=== PATIENT | female | born 1985 | race Caucasian/White ===

== ENCOUNTER → 2017-12-05 18:21 | Outpatient (CLI) | payer OTHER, SELFPAY ==
--- NOTE | 2017-12-05 | DI.MRI.S_ITS ---
PROCEDURE: MR ANKLE RT WO CON INDICATIONS: PAIN IN RIGHT FOOT TECHNIQUE: Noncontrast sagittal T1 spin echo and T2 fast spin echo with fat saturation, axial proton density fast spin echo and T2 fast spin echo with fat saturation, coronal T1 spin echo and T2 fast spin echo with fat saturation through the ankle/hindfoot. COMPARISON: None. FINDINGS: Image quality: Excellent. Bones and joints: No bone marrow contusions or fractures. No hindfoot coalitions. No osteochondral injuries of the talar dome. Tibiotalar joint effusion is present. There is an unfused accessory navicular with mild marrow edema at the synchondrosis. Medial structures: The posterior tibialis, flexor digitorum longus, and flexor hallucis longus tendons are intact. However there is fluid surrounding the posterior tibialis and flexor digitorum longus tendons. The posterior tibial neurovascular bundle appears normal within the tarsal tunnel, without extrinsic mass effect. The deep layer (anterior and posterior tibiotalar ligaments) and superficial layer (tibionavicular, tibiospring, and tibiocalcaneal ligaments) of the deltoid ligament appear grossly intact however there is intrasubstance T2 hyperintensity in signal change, and probable surrounding mild soft tissue edema. The spring ligament components (superomedial calcaneonavicular, medioplantar oblique calcaneonavicular, and inferoplantar longitudinal ligaments) are intact. Lateral structures: The anterior talofibular, calcaneofibular, and posterior talofibular ligaments appear intact. More superiorly, the anterior and posterior tibiofibular ligaments appear intact, as is the intermalleolar ligament. The tibiofibular syndesmosis is normal in width at 2 mm or less. The peroneus longus and brevis tendons demonstrate normal location and morphology. Adjacent bony peroneal tubercle and retrotrochlear prominence are normal in size. The sinus tarsi demonstrates normal fatty signal, without edema, fibrosis, or cyst formation. Visualized sinus tarsi components (cervical ligament, interosseous talocalcaneal ligament, roots of the inferior extensor retinaculum) appear normal. The calcaneonavicular and calcaneocuboid components of the bifurcate ligament appear intact. The dorsal calcaneocuboid ligament appears intact. Anterior structures: The tibialis anterior, extensor hallucis longus, and extensor digitorum longus tendons appear intact. The dorsal talonavicular ligament appears intact. Posterior and plantar structures: Achilles tendon is intact. Medial and lateral bands of the plantar fascia are of normal thickness. 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 Recommend clinical correlation. Posterior tibialis and flexor digitorum longus tenosynovitis. Diffuse signal change and ill-defined appearance of the deltoid ligament suggestive of sprain. Mild marrow edema in the adjacent medial malleolus which could be reactive. Please correlate to clinical exam findings. Dictated by: Orestes Staples M.D. on 12/08/2017 at 9:09 Approved by: Orestes Staples M.D. on 12/08/2017 at 9:22
== END ==
PROVIDERS: Visit Provider Podiatrist
DX: M79.671 Pain in right foot (principal); M65.871 Other synovitis and tenosynovitis, right ankle and foot; Q74.2 Other congenital malformations of lower limb(s), including pelvic girdle
CPT/HCPCS: 73721

== ENCOUNTER → 2019-04-16 14:31 | Outpatient (CLI) | payer OTHER, SELFPAY ==
--- NOTE | 2019-04-16 14:33 | DI.CT.S_ITS ---
PROCEDURE: CT ABDOMEN PELVIS WO CON INDICATIONS: rule out ventral/spigelian hernia left abdomen TECHNIQUE: Noncontrast 5 mm thick sections acquired from the diaphragms to the symphysis. 5 mm coronal and sagittal reformats were then performed. For radiation dose reduction, the following was used: automated exposure control, adjustment of mA and/or kV according to patient size. COMPARISON: [facility], , US ABDOMEN, 05/14/2018, 15:28. FINDINGS: Image quality: Excellent. ABDOMEN: Lung bases: Lung bases are clear. Heart size is normal. Solid organs: Liver is normal in size. Gallbladder is unremarkable. Pancreas is normal in contours. Spleen is normal in size. No adrenal nodules. Kidneys are normal in size, without hydronephrosis or nephrolithiasis. Peritoneum and bowel: Unenhanced bowel loops demonstrate normal wall thickness and caliber. No free fluid or air. The appendix is not clearly identified on this exam, but there are no right lower quadrant or pericecal inflammatory findings to suggest acute appendicitis. There is mild diverticulosis without diverticulitis of the sigmoid and descending colon. Nodes and vessels: No retroperitoneal or mesenteric adenopathy by size criteria. Aorta and inferior vena cava are normal in caliber. Miscellaneous: There is a small 1.7 x 1.5 x 1.2 cm fat-containing umbilical hernia. No other ventral abdominal wall hernias are identified. There are small areas of hypoattenuating fat infiltration of the bilateral rectus abdominous musculature, without gavi defect or hernia. PELVIS: Genitourinary: Bladder wall thickness is normal. Miscellaneous: No inguinal hernias or adenopathy. The uterus is present. There is a 1.5 cm anterior uterine wall possible hypoattenuating mass near the fundus.Trace volume free fluid within the pelvis, likely within physiologic limits. Bones: No suspicious bony lesions. No vertebral body compression fractures. IMPRESSION: 1. Small 1.5 cm fat-containing umbilical hernia. No other hernias of the ventral abdominal wall are identified. Small areas of fat infiltration of the bilateral rectus muscles noted. 2. Possible 1.5 cm hypoattenuating mass within the anterior uterine wall, most consistent with an uterine leiomyoma/fibroid. Consider pelvic ultrasound if there is continued clinical concern. 3. Mild sigmoid and descending colon diverticulosis without evidence of acute diverticulitis. Dictated by: Lasha Hicks M.D. on 04/16/2019 at 16:31 Approved by: Lasha Hicks M.D. on 04/19/2019 at 17:17
== END ==
PROVIDERS: Visit Provider Surgery
DX: R10.12 Left upper quadrant pain (principal); K42.9 Umbilical hernia without obstruction or gangrene; K57.30 Diverticulosis of large intestine without perforation or abscess without bleeding
CPT/HCPCS: 74176

== ENCOUNTER 2020-06-28 12:28 | Emergency (ER) | payer OTHER, SELFPAY ==
[2020-06-28 12:35] VITALS: BP 121/69; PULSE 67; RESP 15; TEMP 36.8; O2SAT 100; BMI 22.6
[2020-06-28] MEDS: FLUORESCEIN 1 MG STRIP EYE-RIGHT (13:34)
[2020-06-28] MEDS: PROPARACAINE 0.5% OPHTH SOL 1 DROPS EYE-RIGHT (13:34)
[2020-06-28] MEDS: TET,DIPH,PERTUSS(ACELL),VAC/PF 0.5 ML SYRINGE IM (13:34)
[2020-06-28 14:47] VITALS: BP 100/57; PULSE 56; RESP 16; O2SAT 100
--- NOTE | 2020-06-28 14:57 | ED_ITS ---
HPI - Eye Problem <ANIYA Marquez - Last Filed: 06/28/20 15:03> General Chief complaint: Eye Problems Stated complaint: states something in her right eye lid Time Seen by Provider: 06/28/20 13:16 Source: patient Mode of arrival: Ambulatory Limitations: no limitations History of Present Illness HPI Narrative: The patient is a 34-year-old female nonsmoker who denies pertinent medical history presents with a chief complaint of something under her right lid for the past several days. She states she started having this sensation after being exposed to sawdust for several days in a row. She states she has felt this way before. She does not know when her last tetanus was, then states that her family member checked her vaccination card noted that her last tetanus was in 1998. She denies any eye pain, denies any visual deficits, denies any blurry vision or haloing of lights. She has flushed out her eye multiple times. Related Data Home Medications Medication Instructions Recorded Confirmed ibuprofen 200 mg tablet 600 mg PO Q6-8H PRN tab 04/15/19 04/21/19 Previous Rx's Medication Instructions Recorded erythromycin 1 applic EYE-RIGHT Q4H 7 Days #3.5 06/28/20 g Allergies Allergy/AdvReac Type Severity Reaction Status Date / Time codeine Allergy Unknown Verified 06/28/20 12:37 Review of Systems <DEANN Marquez - Last Filed: 06/28/20 15:03> Review of Systems Narrative: GENERAL: Denies chills, fatigue, malaise, fever, sweats. HEENT: See HPI RESPIRATORY: Denies dyspnea, cough, wheezing, hemoptysis, sputum. CARDIOVASCULAR: Denies chest pain, palpitations, orthopnea, edema, GASTROINTESTINAL: Denies nausea, vomiting, abdominal pain, diarrhea, constipation, melena. : Denies dysuria, frequency, incontinence, hematuria, urinary retention. MUSCULOSKELETAL: denies weakness, joint pain, or bony pain SKIN: Denies rash, skin lesions, or other NEUROLOGIC: Denies weakness, headache, numbness, change in speech, confusion, seizures, incoordination. PSYCHIATRIC: No concerning psychosocial issues. 12 point review of systems is negative except for those stated above Patient History <ANIYA Marquez - Last Filed: 12/30/20 15:03> Medical History Abdominal wall pain in left upper quadrant Asthma Scar of abdominal wall Seasonal allergies Surgical History Hx of appendectomy Hx of section Hx of tubal ligation Social History marital status: household members: children occupational status: employed Smoking Status: Never smoker alcohol intake: current substance use type: does not use Smoking Status: Never smoker alcohol intake frequency: holidays/special occasions only Substance Use Type: does not use Exam <ANIYA Marquez - Last Filed: 06/28/20 15:03> Narrative Exam Narrative: GENERAL: This is a well-nourished, well-developed patient, in no acute distress HEAD: Atraumatic. Normocephalic. No temporal or scalp tenderness. EYES: Pupils equal round and reactive. Extraocular motions intact. No scleral icterus. No injection or drainage. Very slight diffuse, not well demarcated erythema noted on top of right lid, medial aspect less than half a cm. No obvious foreign body or corneal abrasion noted on fluorescein exam. Slight inflammation noted inside of upper lid. ENT: Nose without bleeding, purulent drainage or septal hematoma. Throat without erythema, tonsillar hypertrophy or exudate. Uvula midline. Airway patent. NECK: Trachea midline. No JVD or lymphadenopathy. Supple, nontender, no meningeal signs. CARDIOVASCULAR: Regular rate and rhythm RESPIRATORY: No cough. No increased respiratory effort. No accessory muscle use. BACK: Nontender without deformity or crepitance. No flank tenderness. NEURO: AOx3. Initial Vital Signs Initial Vital Signs: Vital Signs Temperature 98.3 F 06/28/20 12:35 Pulse Rate 67 06/28/20 12:35 Respiratory Rate 15 06/28/20 12:35 Blood Pressure 121/69 06/28/20 12:35 Pulse Oximetry 100 06/28/20 12:35 <Cecilia Stone DO - Last Filed: 06/28/20 17:15> Initial Vital Signs Initial Vital Signs: Vital Signs Temperature 98.3 F 06/28/20 12:35 Pulse Rate 67 06/28/20 12:35 Respiratory Rate 15 06/28/20 12:35 Blood Pressure 121/69 06/28/20 12:35 Pulse Oximetry 100 06/28/20 12:35 Scores <DEANN Marquez - Last Filed: 06/28/20 15:03> GCS Jorge coma scale eye opening: Spontaneous [place] coma scale verbal response: Orientated [place] coma scale motor response: Obey commands Jorge coma scale total score: 15 Course <DEANN Marquez - Last Filed: 06/28/20 15:03> Orders Ordered: Discontinued Medications Diphtheria/Tetanus/Acell Pertussis (Tet,Diph,Pertuss(Acell),Vac/Pf 0.5 Ml Syringe) 0.5 ml IM .ONCE ONE Stop: 06/28/20 13:30 Last Admin: 06/28/20 13:34 Dose: 0.5 ml Documented by: GAMALIEL Fluorescein Sodium (Fluorescein 1 Mg Strip) 1 mg EYE-RIGHT NOW ONE Stop: 06/28/20 13:21 Last Admin: 06/28/20 13:34 Dose: 1 mg Documented by: GAMALIEL Proparacaine HCl (Proparacaine 0.5% Ophth Daniela) 1 drops EYE-RIGHT NOW ONE Stop: 06/28/20 13:21 Last Admin: 06/28/20 13:34 Dose: 1 drop Documented by: GAMALIEL Vital Signs Vital signs: Vital Signs - 8 hr 06/28/20 12:35 06/28/20 14:47 Temperature 98.3 F Pulse Rate 67 56 L Respiratory Rate 15 16 Blood Pressure 121/69 100/57 L Pulse Oximetry 100 100 <Cecilia Stone DO - Last Filed: 06/28/20 17:15> Orders Ordered: Discontinued Medications Diphtheria/Tetanus/Acell Pertussis (Tet,Diph,Pertuss(Acell),Vac/Pf 0.5 Ml Syringe) 0.5 ml IM .ONCE ONE Stop: 06/28/20 13:30 Last Admin: 06/28/20 13:34 Dose: 0.5 ml Documented by: GAMALIEL Fluorescein Sodium (Fluorescein 1 Mg Strip) 1 mg EYE-RIGHT NOW ONE Stop: 06/28/20 13:21 Last Admin: 06/28/20 13:34 Dose: 1 mg Documented by: FHUDSON Proparacaine HCl (Proparacaine 0.5% Ophth Daniela) 1 drops EYE-RIGHT NOW ONE Stop: 06/28/20 13:21 Last Admin: 06/28/20 13:34 Dose: 1 drop Documented by: GAMALIEL Vital Signs Vital signs: Vital Signs - 8 hr 06/28/20 12:35 06/28/20 14:47 Temperature 98.3 F Pulse Rate 67 56 L Respiratory Rate 15 16 Blood Pressure 121/69 100/57 L Pulse Oximetry 100 100 MDM - Eye Problem <BARRY Marquez-BC - Last Filed: 06/28/20 15:03> [facility] Narrative Medical decision making narrative: The patient is a 34-year-old male who presents with a chief complaint of something in her right eye under the lid. No obvious foreign body or abnormality, though slight diffuse inflammation noted. Patient's tetanus was updated accordingly. Her visual acuity is within normal limits. Encouraged follow-up with primary care provider in the next few days and coming back to the ER for acute concerns. Patient is placed on erythromycin. No questions or concerns upon discharge states understanding return precautions as well as follow-up care. Discharge Plan Departure Patient Disposition: Home Clinical Impression: Eye discomfort Qualifiers: Laterality: right Qualified Code(s): H57.11 - Ocular pain, right eye Instructions: Erythromycin Ophthalmic, DI for Foreign Body in the Eye Activity Restrictions/Additional Instructions: Thank you for trusting us with your care today. As discussed, please follow-up with primary care provider in the next few days. I did send a prescription of erythromycin to [facility] in [place] Please come back to the emergency department for any acute concerns such as eye pain, decreased vision etcetera Prescriptions: New erythromycin 5 mg/gram (0.5 %) ointment 1 applic EYE-RIGHT Q4H 7 Days Qty: 3.5 RF: 0 No Action ibuprofen [Motrin IB] 200 mg tablet 600 mg PO Q6-8H PRNRF: 0 Referrals: [facility] [Provider Group] <Cecilia Stone DO - Last Filed: 06/28/20 17:15> Cosign ED Attending Yasemin Attestation: I was immediately available in the department for consultation. Documentation has been reviewed. I agree with asse ssment and plan.
== END 2020-06-28 14:50 | disposition home or self-care (01) ==
PROVIDERS: Emergency Provider Nurse Practitioner Family
DX: H57.11 Ocular pain, right eye (principal); Z23 Encounter for immunization
CPT/HCPCS: 90471; 99281; 99283; 90715

== ENCOUNTER → 2022-05-28 14:57 | Outpatient (CLI) | payer OTHER, SELFPAY ==
--- NOTE | 2022-05-28 14:59 | DI.US.S_ITS ---
PROCEDURE: US PELVIC COMPLETE INDICATIONS: EXCESSIVE BLEEDING TECHNIQUE: Real-time scanning was performed of the pelvic organs, with image documentation. Additional endovaginal scanning was necessary due to incomplete visualization of the adnexal and endometrial structures by transabdominal scanning. COMPARISON: [facility], CT, CT ABDOMEN PELVIS WO CON, 04/16/2019, 15:20. FINDINGS: Uterus: Uterus is retroverted and normal in size at 8.2 x 5.7 x 4.7 cm. The myometrium is slightly heterogeneous but no discrete mass visible. The endometrium is heterogeneous and measures 16 mm combined thickness. Normal vascularity throughout the myometrium without increased endometrial vascular flow. There are a few small and one dominant nabothian cysts at the cervix. Ovaries: The right ovary measures 3.7 x 2.2 x 1.7 cm, with a calculated ovarian volume of 7.3 cc. The left ovary measures 5.6 x 1.7 x 2.6 cm, with a calculated ovarian volume of 12.8 cc. The right ovary contains a thick-walled, mildly peripherally vascular collapsed cyst measuring about 2.0 cm, likely corpus luteum. Less than 12 follicles can be seen in each ovary. No adnexal masses are seen. Other: Mildly increased quantity of free fluid present in both adnexa. IMPRESSION: 1. Heterogeneous endometrial stripe at the upper limits of normal for premenopausal female. No abnormal vascular flow. 2. Slightly heterogeneous retroverted uterine myometrium. No dominant mass. 3. Involuting right ovarian corpus luteum. This may be the etiology of adnexal free fluid. We strive to produce accurate, complete, and clear reports of imaging services. To assist us in improving patient care, this report was composed using standard report templates and voice recognition software. Therefore, it may contain abnormal punctuation, insertions and/or omissions. Occasional wrong-word or sound-alike substitutions may occur. Though we review the report and make efforts to correct it, we do recommend that the report be read carefully in proper context to recognize any text inaccuracies. Dictated by: Ayde Seaman M.D. on 05/29/2022 at 11:18 Approved by: Ayde Seaman M.D. on 05/29/2022 at 11:24
== END ==
PROVIDERS: PCP Family Medicine; Referring Provider Family Medicine; Visit Provider Family Medicine
DX: N92.0 Excessive and frequent menstruation with regular cycle (principal); N83.11 Corpus luteum cyst of right ovary
CPT/HCPCS: 76830; 76856

== ENCOUNTER 2022-11-18 09:40 | Day surgery (SDC) | payer OTHER, SELFPAY ==
[2022-11-13 15:16] VITALS: BMI 27.1
[2022-11-18] VITALS (12 sets, daily range): BP systolic 88–133; BP diastolic 54–80; PULSE 53–96; RESP 12–18; TEMP 36.1–36.9; O2SAT 95–100; BMI 27.1
--- NOTE | 2022-11-18 | PATH_ITS ---
[facility] Accession Number: [id number] No. of containers..01 Tissue . 01 Material submitted: . uterus - UTERUS, RIGHT / LEFT FALLOPIAN TUBES . 01 Diagnosis: Uterus And Bilateral Fallopian Tubes, Hysterectomy And Bilateral Salpingectomy: Cervix with mild chronic inflammation; no dysplasia or malignancy. Proliferative endometrium with changes suggestive of prior treatment; no atypical hyperplasia and no malignancy. Unremarkable myometrium. Complete cross-section of fimbriated bilateral fallopian tubes with hydrosalphinx, mild chronic inflammation and reactive epithelial changes (see microscopic description). No evidence of malignancy. [facility] 11/21/2022 1339 Local . 01 Comment: Selected slides have also been reviewed by Dr. Lay Good, who concurs with the benign and reactive nature of the entirely examined fallopian tubes. . 01 Electronically signed: . Yennifer Rodriguez MD, Pathologist NPI- [id number] . 01 Gross description: . The specimen is received in formalin labeled with the patient's name, , and uterus and R and L fallopian tubes, and consists of an intact uterus (125 grams, 8.9 SI, 6.6 mL, 4.5 AP cm), with attached cervix (3.7 x 3.0 cm) and two detached, unoriented, fimbriated fallopian tubes (5.8 x 0.9 cm and 4.4 x 0.7 cm respectively), and no adnexa. . The ectocervix is pink-fernandez, smooth, and glistening and significant for a purple loop of suture from 12 o'clock to 2 o'clock with no desigantion per the requisition. The os is patulous and measures 1.0 cm in diameter. The anterior paracervical margin is inked blue while the posterior paracervical margin is inked black. The serosa is fernandez and smooth with no evidence of hemorrhage or adhesion identified. The endocervical canal has fernandez herringbone mucosa and measures 2.5 cm in length. The endometrial cavity has lush dark red endometrium and measures 2.8 cm from cornu to cornu and 3.7 cm in length with the endometrium averaging 0.4 cm thick. The myometrium is pink-fernandez and trabecular measuring up to 2.2 cm in maximum thickness with no nodules or lesions grossly identified. . The longer fallopian tube has congested smooth serosa with multiple cystic structures measuring up to 0.3 cm in greatest dimension filled with cloudy serous fluid. The fallopian tube has an area of luminal narrowing possibly consistent with previous tubal ligation. Sectioning reveals a dilated, disconnected lumen. The shorter fallopian tube has congested smooth serosa with multiple cystic structures measuring up to 0.1 cm in greatest dimension filled with cloudy serous fluid. An area of luminal narrowing is noted possibly consistent with previous tubal ligation. Sectioning reveals a disconnected, dilated lumen. . Sections are submitted as follows: A1: Anterior cervix. A2: Posterior cervix. A3: Anterior full thickness section. A4: Posterior full thickness section. A5: Serosa. A6: Longer fallopian tube to include one-half of bisected fimbriae and cross-sections. A7: [place] fallopian tube to include one-half of bisected fimbriae and cross-sections. ([id number]) . The remaining longer fallopian tube is submitted entirely in cassettes [id number]. . The remaining shorter fallopian tube is submitted in cassettes [id number]. ([id number]) /PIYUSH 11/21/2022 0340 [facility] . 01 Microscopic: . Initial examination of the fallopian tube was remarkable for hyperplastic epithelial lining with pseudostratification and formation of small papillae. This was seen in association with inflammation and hydrosalpinx. The entire fallopian tubes were then submitted to exclude an atypical proliferation. The rest of the fallopian tube was also noted to show reactive changes with no evidence of malignancy. . 01 Pathologist provided ICD-10: N92.0 . 01 CPT . 679201 Specimen Comment: A courtesy copy of this report has been sent to [phone] Performed at: [address] [place] [address] Cytology 550 [address] [address] [facility], [place], [place] [id number] MD Mk Baker MD Phone: [phone]
--- NOTE | 2022-11-18 10:28 | PM.PREOP ---
Pre-operative Note COVID-19 COVID-19 status: Not tested Criteria for continued procedure: Non-surgical alternatives not available or appropriate per current SOC Interval Note History & Physical reviewed/Exam performed by Physician: Yes Changes to H&P: No
[2022-11-18] MEDS: CEFAZOLIN 2 GM/100 ML PREMIX 100 ML IV (11:00)
--- NOTE | 2022-11-18 11:18 | SUR.OPER ---
Lithotomy on padded OR bed. Jolley Pad Positioner under torso. Head on pillow, arms padded and tucked at sides. Legs secured in padded yellow fins stirrups.
[2022-11-18] MEDS: BUPIVACAINE 0.5% (PF) 30 ML, EPINEPHrine 0.15 MG INJ (11:49)
[2022-11-18] MEDS: LACTATED RINGERS 1,000 ML 42 ML IV (12:03)
[2022-11-18] MEDS: ROPIVACAINE 0.2% PF 2 MG/ML 20ML AMP 20 ML INJ (12:39)
[2022-11-18] MEDS: OXYCODONE/ACETAMINOPHEN 5/325 TABLET 1 TAB PO (13:09)
--- NOTE | 2022-11-18 13:09 | PM.GYNOP.1 ---
Operative Date/Time/Diagnoses Date of procedure: 11/18/22 Time of procedure: 11:00 Pre-op diagnosis: Menometrorrhagia Adenomyosis Post-op diagnosis: same Procedure & Clinicians Procedure: Procedures Operation Date: 11/18/22 11:15 Actual Procedure Side Surgeon p Laparoscopic Total Hysterectomy w. bilateral salpingectomy Ladarius Mason MD Indications: Maida is a 36-year-old A1, LMP 09/10/2022, who presents with a 10 year history of progressively heavy and painful periods.? She experienced menarche at age 8 and has had regular predictable periods throughout her adult life.? She is not experienced any infertility issues.? She is had 3 deliveries with the 1st being a spontaneous vaginal followed by a section, and her 3rd delivery was by .? At the time of her last delivery she had a tubal ligation performed.? Prior to that when not she was on control pills and had fairly light periods while on OCs.? Following her tubal ligation however her periods have remained regular but come to be extremely heavy with at least 3-4 days of severe bleeding associated with severe dysmenorrhea.? During those occasion she feels uncomfortable even leaving the house sometimes due to fear of overflows and has had multiple overflows especially at night.? She uses 800 mg of ibuprofen every [id number] hours to provide any significant relief to her dysmenorrhea.? She is had multiple ultrasounds through the years but no specific therapy or further evaluation for her dysmenorrhea and menorrhagia.? She denies any intermenstrual bleeding.? She is not sexually active as her 4 years ago.? Pap smears have always been normal with her most recent Pap in mid 2021.? She has not had endometrial sampling performed.? Her most recent pelvic ultrasound was performed 05/28/2022 and shows: PROCEDURE:? US PELVIC COMPLETE ? INDICATIONS:? EXCESSIVE BLEEDING ? TECHNIQUE:? Real-time scanning was performed of the pelvic organs, with image documentation.? Additional endovaginal scanning was necessary due to incomplete visualization of the adnexal and endometrial structures by transabdominal scanning.? ? COMPARISON:? [facility], CT, CT ABDOMEN PELVIS WO CON, 04/16/2019, 15:20. ? FINDINGS:? ?? Uterus:? Uterus is retroverted and normal in size at 8.2 x 5.7 x 4.7 cm. The myometrium is slightly heterogeneous but no discrete mass visible. ? The endometrium is heterogeneous and measures 16 mm combined thickness.? Normal vascularity throughout the myometrium without increased endometrial vascular flow.? There are a few small and one dominant nabothian cysts at the cervix. ? Ovaries:? The right ovary measures 3.7 x 2.2 x 1.7 cm, with a calculated ovarian volume of 7.3 cc. The left ovary measures 5.6 x 1.7 x 2.6 cm, with a calculated ovarian volume of 12.8 cc.? The right ovary contains a thick-walled, mildly peripherally vascular collapsed cyst measuring about 2.0 cm, likely corpus luteum.? Less than 12 follicles can be seen in each ovary.? No adnexal masses are seen. ? Other:? Mildly increased quantity of free fluid present in both adnexa. ?? IMPRESSION:? ? 1. Heterogeneous endometrial stripe at the upper limits of normal for premenopausal female.? No abnormal vascular flow.? 2. Slightly heterogeneous retroverted uterine myometrium.? No dominant mass. 3. Involuting right ovarian corpus luteum.? This may be the etiology of adnexal free fluid. Ultrasound images reviewed and the heterogenous nature of the myometrium and what appears to be a thickened transition zone are concerning for the possible presence of adenomyosis and her symptoms of heavy bleeding and severe dysmenorrhea her certainly consistent with that diagnosis.? Options for treatment of her menorrhagia discussed at length including but not limited to insertion of Mirena IUD, endometrial ablation, or hysterectomy with ovarian preservation discussed.? Patient does not want to have a Mirena IUD inserted because of her previous issues with hormonal contraceptives.? She is also concerned that endometrial ablation would not provide definitive treatment especially if adenomyosis is present.? Instead the patient seems to be leaning toward having hysterectomy and bilateral salpingectomy performed with ovarian preservation given how long she is been dealing with the symptoms and how many days each month she is virtually incapacitated by her menses.? Endometrial biopsy at her initial visit was negative for atypia, hyperplasia, or neoplasia. After consideration of all options, the patient has decided proceed with total laparoscopic hysterectomy and bilateral salpingectomy.? She presents today for her scheduled surgery. Surgeon: Ladarius Mason Lift Team Technician: Paris Xiao Anesthesia Type: General Operative Notes Closure Type: primary Specimen(s): left tube, right tube and uterus Applied: catheter Estimated blood loss (mL): 75 Blood products transfused: none Procedure in detail: With the patient in modified dorsal lithotomy position preparations were made by prepping and draping the patient in usual manner for vaginal surgery and insertion of Fuentes catheter. A pre-surgical time-out was then taken in accordance with [facility] policy. A bivalve speculum was then placed in the vagina and the cervix visualized. The anterior lip of the cervix was then grasped with a single-tooth tenaculum. The uterus was sounded to [] cm, the endocervical canal dilated slightly, and a VCare uterine manipulator with a large colpotomy cup was placed. The umbilicus was then infiltrated with 0.5% Marcaine with epinephrine. A 1 cm umbilical incision was made transversely and a Veress needle was used to insufflate the abdominal cavity with carbon dioxide. Once the abdomen was appropriately insufflated, a 5 mm trocar and sleeve were then placed through the umbilical incision. The scope was placed through the trocar and the initial assessment of the intra-abdominal contents carried out. A 2nd and 3rd 5 mm port was then placed 1st in the right mid quadrant from then the left mid quadrant by infiltration of the skin and subcutaneous tissues, a 1 cm transverse incision and insertion of the 5 mm bladeless port. Using a 3 puncture technique, the abdomen and pelvis were inspected laparoscopy and photographically documented. Uterus is mobilized with the VCare manipulator and attention turned to the left adnexa. The distal tube was then grasped and the fimbria varicose divided after coagulation with the PowerSeal device. The dissection was then carried out toward the cornua and the fallopian tube amputated. The tube was removed through a 5 mm port and dissection was then carried down using the PowerSeal device so as to divide the utero-ovarian ligament and the round ligament with blunt and sharp dissection of the broad down to the level of the uterine artery. The uterine artery was then skeletonized after development of a bladder flap, coagulated, and divided. Once hemostasis was assured on the left side attention was turned to the right and the tube, utero-ovarian ligament, round ligament, and broad ligament were dissected in a fashion exactly the same as it had been on the left. The right uterine artery was then visualized after skeletonization and coagulated and divided. The uterus was seen to conrad after coagulation of both your arteries and the cup was identified through the vaginal muscularis at its insertion with the body of the cervix. Circumferential excision of the vaginal cup was accomplished without difficulty using monopolar current and the uterus mobilized. The uterus was then removed through the vagina and the vaginal cuff closed [id number] with a series of 0 Vicryl [id number] stitches. Hemostasis was excellent, the abdomen was re-insufflated, and the pelvis inspected laparoscopically. The pelvis was inspected for any abnormality or bleeding, and the ureters were each seen to be peristalsing freely. With complete hemostasis assured, the pneumoperitoneum was vented and the ports removed. All of the 5 mm ports were then closed with 4-0 Monocryl on the skin using inverted interrupted sutures. Skin glue was placed and after the glue was dried, an appropriate dressing was applied. The case was then terminated, the patient awakened, and then transferred to PACU after having tolerated the procedure well. Complications: none Post-operative Condition: stable Disposition: PACU Plan for aftercare: Recovery in ambulatory surgery in discharge home later today if pain is under control and she is tolerating oral intake well.
[2022-11-18] MEDS: KETOROLAC 30 MG/ML VIAL IV ×2 (14:40→20:19)
[2022-11-18] MEDS: LACTATED RINGERS 1,000 ML 100 ML IV (14:43)
--- NOTE | 2022-11-18 16:11 | PC.NURSE ---
pt felt like her catheter was not draining. bladder scan was 30cc, 18cc
[2022-11-18] MEDS: OXYCODONE IR 5 MG TABLET PO ×2 (17:23→22:08)
[2022-11-18] MEDS: ACETAMINOPHEN 325 MG TABLET 650 MG PO (17:24)
[2022-11-18] MEDS: BUDESONIDE 0.5 MG/2 ML NEB INH (19:23)
[2022-11-18] MEDS: DOCUSATE 100 MG CAPSULE 200 MG PO (20:20)
[2022-11-18] MEDS: MORPHINE 4 MG/ML INJ IV (22:14)
--- NOTE | 2022-11-18 22:49 | PC.NURSE ---
night shift manager: Patient stating discomfort and feeling like her bladder is full. Previous RN (Lilia) spoke with MD Mason about this and MD Mason recommended removing 5cc from Fuentes cathetar balloon. When I came on shift, Lilia RN reported that she had not removed the 5cc's yet. I spoke with patient who was still experiencing discomfort. Removed 5cc from balloon. Patient verbalized less discomfort.
[2022-11-19] MEDS: ACETAMINOPHEN 325 MG TABLET 650 MG PO ×3 (00:23→10:54)
[2022-11-19 00:35] VITALS: BP 98/57; PULSE 69; RESP 18; TEMP 36.6; O2SAT 99
[2022-11-19] MEDS: LACTATED RINGERS 1,000 ML 100 ML IV (00:51)
[2022-11-19] MEDS: KETOROLAC 30 MG/ML VIAL IV ×2 (01:46→09:21)
[2022-11-19] MEDS: OXYCODONE IR 5 MG TABLET PO ×2 (04:09→10:54)
[2022-11-19] MEDS: MORPHINE 4 MG/ML INJ IV (04:10)
[2022-11-19 04:34] VITALS: PULSE 64; RESP 18; TEMP 36.7; O2SAT 99
--- NOTE | 2022-11-19 06:09 | PC.NURSE ---
Fuentes cathetar removed at 0600. Patient declined further IV fluids, saud locked her IV. Patient is drinking water (3+ cups on the floor since arrival). Patient understands to call nurse and wait for assistance before getting up to the BR.
[2022-11-19 06:31] LABS: Add Manual Diff / Slide Review NO; Basophils Absolute Auto 0 /uL (0-100); Basophils Percent Auto 0.4 % (0-2); Eosinophils Absolute Auto 0 /uL (0-450); Eosinophils Percent Auto 0.2 % (2-4); Hematocrit 32.5 % (36-46); Hemoglobin 11.1 g/dL (12.0-16.0); Lymphocytes Absolute Auto 1800 /uL (1100-4500); Lymphocytes Percent Auto 17.6 % (25-40); Mean Corpuscular HGB Conc 34.1 % (30-36); Mean Corpuscular Hemoglobin 28.3 PG (26-34); Mean Corpuscular Volume 83.1 fL (80-100); Monocytes Absolute Auto 800 /uL (0-900); Monocytes Percent Auto 7.8 % (3-14); Neutrophils Absolute Auto 7400 /uL (1500-7000); Platelet Count 278 X10^3/uL (150-400); Red Blood Cell Count 3.92 X10^6/uL (4.0-5.2); Red Cell Distribution Width 17.6 % (11.6-14.8)
--- NOTE | 2022-11-19 07:42 | PM.DS.1 ---
History of Present Illness History of Present Illness Date Patient Seen: 11/19/22 Time Patient Seen: 07:42 Chief complaint: Menorrhagia, Adenomyosis Narrative: Maida is a 36-year-old A1, LMP 09/10/2022, who presents with a 10 year history of progressively heavy and painful periods.? She experienced menarche at age 8 and has had regular predictable periods throughout her adult life.? She is not experienced any infertility issues.? She is had 3 deliveries with the 1st being a spontaneous vaginal followed by a section, and her 3rd delivery was by .? At the time of her last delivery she had a tubal ligation performed.? Prior to that when not she was on control pills and had fairly light periods while on OCs.? Following her tubal ligation however her periods have remained regular but come to be extremely heavy with at least 3-4 days of severe bleeding associated with severe dysmenorrhea.? During those occasion she feels uncomfortable even leaving the house sometimes due to fear of overflows and has had multiple overflows especially at night.? She uses 800 mg of ibuprofen every [id number]-[id number] hours to provide any significant relief to her dysmenorrhea.? She is had multiple ultrasounds through the years but no specific therapy or further evaluation for her dysmenorrhea and menorrhagia.? She denies any intermenstrual bleeding.? She is not sexually active as her 4 years ago.? Pap smears have always been normal with her most recent Pap in mid 2021.? She has not had endometrial sampling performed.? Her most recent pelvic ultrasound was performed 05/28/2022 and shows: PROCEDURE:? US PELVIC COMPLETE ? INDICATIONS:? EXCESSIVE BLEEDING ? TECHNIQUE:? Real-time scanning was performed of the pelvic organs, with image documentation.? Additional endovaginal scanning was necessary due to incomplete visualization of the adnexal and endometrial structures by transabdominal scanning.? ? COMPARISON:? [facility], CT, CT ABDOMEN PELVIS WO CON, 04/16/2019, 15:20. ? FINDINGS:? ?? Uterus:? Uterus is retroverted and normal in size at 8.2 x 5.7 x 4.7 cm. The myometrium is slightly heterogeneous but no discrete mass visible. ? The endometrium is heterogeneous and measures 16 mm combined thickness.? Normal vascularity throughout the myometrium without increased endometrial vascular flow.? There are a few small and one dominant nabothian cysts at the cervix. ? Ovaries:? The right ovary measures 3.7 x 2.2 x 1.7 cm, with a calculated ovarian volume of 7.3 cc. The left ovary measures 5.6 x 1.7 x 2.6 cm, with a calculated ovarian volume of 12.8 cc.? The right ovary contains a thick-walled, mildly peripherally vascular collapsed cyst measuring about 2.0 cm, likely corpus luteum.? Less than 12 follicles can be seen in each ovary.? No adnexal masses are seen. ? Other:? Mildly increased quantity of free fluid present in both adnexa. ?? IMPRESSION:? ? 1. Heterogeneous endometrial stripe at the upper limits of normal for premenopausal female.? No abnormal vascular flow.? 2. Slightly heterogeneous retroverted uterine myometrium.? No dominant mass. 3. Involuting right ovarian corpus luteum.? This may be the etiology of adnexal free fluid. Ultrasound images reviewed and the heterogenous nature of the myometrium and what appears to be a thickened transition zone are concerning for the possible presence of adenomyosis and her symptoms of heavy bleeding and severe dysmenorrhea her certainly consistent with that diagnosis.? Options for treatment of her menorrhagia discussed at length including but not limited to insertion of Mirena IUD, endometrial ablation, or hysterectomy with ovarian preservation discussed.? Patient does not want to have a Mirena IUD inserted because of her previous issues with hormonal contraceptives.? She is also concerned that endometrial ablation would not provide definitive treatment especially if adenomyosis is present.? Instead the patient seems to be leaning toward having hysterectomy and bilateral salpingectomy performed with ovarian preservation given how long she is been dealing with the symptoms and how many days each month she is virtually incapacitated by her menses.? Endometrial biopsy at her initial visit was negative for atypia, hyperplasia, or neoplasia. After consideration of all options, the patient has decided proceed with total laparoscopic hysterectomy and bilateral salpingectomy.? She presents today for her scheduled surgery. Discharge Providers Provider Date of admission: 11/18/2022 Discharge Date: 11/19/22 Primary care physician: Kelli Lowe DO Discharge provider: Ladarius Mason MD Summary Hospital Course Discharge Diagnosis: Menorrhagia Adenomyosis s/p Total laparoscopic hysterectomy w/ bilateral salpingectomy Hospital Course: Kerry was admitted on 11/18/2022 and late on the morning of 11/18/2022 underwent uneventful total laparoscopic hysterectomy with bilateral salpingectomy. Details of the procedure well summarized on the dictated operative note of that date. Following surgery the patient has done extremely well with prompt return of bowel and bladder function, she is ambulating independently, tolerating a regular diet, and her pain is well controlled with oral pain medications. She will be discharged at this time to home in an afebrile normotensive condition after counseling regarding precautionary symptoms, limitations of activity, medications, and plans for follow-up which will be in 2 weeks. Medications at discharge will include resumption of all preadmission medications along with oxycodone 5 mg p.o. q.6 hours as needed pain, dispense 20 with no refills, Cipro 500 mg p.o. b.i.d. x5 days for urinary tract prophylaxis following catheterization, and Zofran 8 mg ODT q.8 hours as needed nausea and vomiting. Status at Discharge Cognitive/behavioral status at discharge: oriented Functional status at discharge: independent ambulation Overall status at discharge: patient is progressing back to baseline Time Spent with Patient Time spent: Less than 30 minutes Exam Vital Signs (past 8 hours): - 11/19/22 00:35 11/19/22 04:34 Temperature 97.8 F 98.0 F Pulse Rate 69 64 Respiratory Rate 18 18 Blood Pressure 98/57 L Pulse Oximetry 99 99 Oxygen Flow Rate 0 0 Fraction of Inspired Oxygen 21 SaO2/FiO2 Ratio 466 Oxygen Delivery Method Room Air Oxygen Flow Rate 0 Const General: cooperative and comfortable Nutritional Appearance: average body habitus Orientation: alert and oriented x3 HENMT Head: normal to inspection, atraumatic and abrasion Ears: hearing grossly normal bilaterally Face and sinus: face symmetric Eyes General: appearance normal, both eyes and all related structures Conjunctivae: conjunctivae normal Sclera: sclerae normal EOM: EOM intact bilaterally Neck Neck: normal visual inspection Resp Effort & Inspection: normal respiratory effort and able to speak in complete sentences Auscultation: clear to auscultation bilaterally Cardio Rate: regular rate Rhythm: regular rhythm Heart Sounds: S1 normal, S2 normal and no murmurs GI Inspection: normal to inspection and incision (Surgical dressings clean and dry) Palpation: soft, no hepatosplenomegaly and tender (Mild, diffuse postsurgical tenderness) External Female Exam: other (No significant bleeding noted) Extrem General: no calf tenderness Psych Appearance: grossly normal Mental Status: mental status grossly normal Speech and Movement: speech and movement normal Mood: congruent mood Affect: normal affect Attitude: cooperative Thought Process: normal Thought Content: normal Judgment: judgment good Objective Labs 11/19/22 06:14 Labs: Laboratory Results - last 24 hr 11/19/22 06:14 WBC 10.0 RBC 3.92 L Hgb 11.1 L Hct 32.5 L MCV 83.1 MCH 28.3 MCHC 34.1 RDW 17.6 H Plt Count 278 Neut % (Auto) 74.0 Lymph % (Auto) 17.6 L Reeves % (Auto) 7.8 Eos % (Auto) 0.2 L Baso % (Auto) 0.4 Neut # (Auto) 7400 H Lymph # (Auto) 1800 Reeves # (Auto) 800 Eos # (Auto) 0 Baso # (Auto) 0 PFSH Medical History Abdominal wall pain in left upper quadrant Asthma Asthma Scar of abdominal wall Seasonal allergies Surgical History Hx of appendectomy Hx of section Hx of tubal ligation Social History marital status: household members: children occupational status: employed Smoking Status: Never smoker alcohol intake: current substance use type: does not use Discharge Assessment & Plan Assessment and Plan Assessment: Menorrhagia Adenomyosis Status post total laparoscopic hysterectomy with bilateral salpingectomy Plan of Treatment: Routine postoperative care with postop follow-up scheduled for 2 weeks after her surgery Discharge Plan Discharge Plan Patient Disposition: Home Provider Discharge Comment: Please review written instructions you received when you were discharged from the hospital. Your postop visit be scheduled 2 weeks after your surgery and I look forward to seeing you then. If however in the meanwhile, you have any issues, concerns, or questions, please contact either through the office phone at [phone], or via the patient portal. Discharge orders & Medications Discharge Orders: Discharge (Order); Ordered 11/19/22 Ordered By: Ladarius Mason Prescriptions: New ciprofloxacin HCl [Cipro] 500 mg tablet 500 mg PO Q12H 5 Days Qty: 10 0RF ondansetron 8 mg tablet,disintegrating 8 mg PO Q8H PRN (Reason: nausea and vomiting) Qty: 20 0RF Continued docusate sodium [Colace] 100 mg capsule 200 mg PO BID PRN (Reason: constipation) Qty: 30 0RF albuterol sulfate [ProAir HFA] 90 mcg/actuation HFA aerosol inhaler 2 puff inhalation Q4-6H PRN (Reason: wheezing) Qty: 8.5 3RF fluticasone propionate [Flovent HFA] 220 mcg/actuation HFA aerosol inhaler 2 puff inhalation BID PRN (Reason: nasal congestion) Qty: 12 3RF montelukast 10 mg tablet 10 mg PO DAILY Qty: 30 3RF naproxen 500 mg tablet 500 mg PO Q8H PRN (Reason: pain) Qty: 30 12RF Rx Instructions: For best effect, start medication 1-2 days prior to expected onset of period No Action ondansetron 4 mg tablet,disintegrating 4 mg PO Q6-8H PRN (Reason: nausea and vomiting) Qty: 20 2RF Follow up/Referrals: Kelli Lowe DO [Primary Care Provider] - Ladarius Mason MD [Physician] - As previously scheduled Diet/Activity/Treatments Diet: Diet as Tolerated Activity: As tolerated Other treatments: Yusz-nhi-vqihqqn Tylenol and/or ibuprofen may be used for additional pain relief. Xuha-stu-rturori stool softeners and/or MiraLax may be used as needed for constipation Skin/Wound/Dressing Care Report to your healthcare provider any signs of infection, such as:: chills, fever, increased pain, unusual drainage and unusual redness Visit Report/Discharge Packet Instructions: DI for Hysterectomy, DI for Laparoscopy Print Language: Belarusian Discharge Data Primary Care Provider: Kelli Lowe Attending Provider: Ladarius Mason
[2022-11-19 08:00] VITALS: BP 102/43; PULSE 53; RESP 18; TEMP 36.6; O2SAT 98
[2022-11-19] MEDS: DOCUSATE 100 MG CAPSULE 200 MG PO (09:21)
[2022-11-19] MEDS: CIPROFLOXACIN 250 MG TABLET 500 MG PO (09:26)
[2022-11-19] MEDS: ONDANSETRON 8 MG in SODIUM CHLORIDE 0.9% 50 ML 216 MG IV (10:34)
== END 2022-11-19 12:15 | disposition home or self-care (01) ==
LOC: OR 09:42 → AC 09:42
PROVIDERS: PCP Family Medicine; Referring Provider Obstetrics & Gynecology; Visit Provider Obstetrics & Gynecology
PROC: 0UT94ZZ Resection of Uterus, Percutaneous Endoscopic Approach (ICD-10-PCS; CPT 58571; principal; 2022-11-18 11:15)
DX: N92.0 Excessive and frequent menstruation with regular cycle (principal); N80.03 Adenomyosis of the uterus; N70.11 Chronic salpingitis; N72 Inflammatory disease of cervix uteri
CPT/HCPCS: 58571; 36415; 85025; 94640; J0171; J0690; J1100; J1885; J2250; J2270; J2405; J2704; J2795; J3010

== ENCOUNTER 2023-06-29 09:34 | Emergency (ER) | payer OTHER, SELFPAY ==
[2022-11-18 15:11] VITALS: BMI 27.1
[2023-06-29 09:49] VITALS: BP 155/91; PULSE 76; RESP 18; TEMP 36.6; O2SAT 99; BMI 24.4
[2023-06-29 09:54] LABS: Appearance Urine UA CLEAR; Bilirubin Urine UA NEGATIVE (NEGATIVE); Glucose Urine UA TRACE g/dL (Negative); Ketones Urine UA NEGATIVE (NEGATIVE); Leukocyte Esterase Urine UA 2+ (NEGATIVE); Nitrite Urine UA POSITIVE (Negative); Occult Blood Urine UA 1+ (Negative); Protein Urine UA 1+ (Negative); Specific Gravity Urine UA <=1.005 (1.000-1.035)
[2023-06-29 09:57] LABS: pH Urine UA 5.5 (4.5-8.0)
[2023-06-29 09:58] LABS: Color Urine UA ORANGE
[2023-06-29 10:01] LABS: Bacteria Urine Moderate (10-30); Culture Indicated Urine Specimen Cultured; RBC Urine 1-5/HPF (0-5/HPF); Squamous Epithelial Cell Urine 1-5 /HPF (0-5/HPF); WBC Urine 10-30/HPF (0-5/HPF)
[2023-06-29 10:02] LABS: Pregnancy Test Urine Negative (Negative)
--- NOTE | 2023-06-29 10:39 | ED.FEMALEGU ---
HPI - Female Genitourinary General Chief complaint: Urogenital-Female Stated complaint: per pt uti Time Seen by Provider: 06/29/23 09:58 Source: patient Mode of arrival: Family Vehicle History of Present Illness HPI Narrative: Patient has history of UTIs. She states feels like having another UTI again for the past 2 days. Urinary frequency urgency with dysuria. No fever or chills. No back pain. No vomiting. Patient in no distress at this time. Related Data Previous Rx's Medication Instructions Recorded albuterol sulfate 90 mcg/actuation 2 puff inhalation Q4-6H PRN 12/25/21 aerosol inhaler (ProAir HFA) wheezing #8.5 grams fluticasone propionate 220 2 puff inhalation BID PRN nasal 12/25/21 mcg/actuation HFA aerosol inhaler congestion #12 grams (Flovent HFA) montelukast 10 mg tablet 10 mg PO DAILY allergies #30 tabs 12/25/21 cephalexin 500 mg capsule 500 mg PO Q8H #15 caps 07/03/23 Allergies Allergy/AdvReac Type Severity Reaction Status Date / Time codeine Allergy Unknown Verified 07/03/23 15:50 Review of Systems Review of Systems Narrative: GENERAL: negative chills, fatigue, malaise, fever, sweats. HEENT: negative sinus pain, ear pain, sore throat RESPIRATORY: negative dyspnea, cough CARDIOVASCULAR: negative chest pain, palpitations GASTROINTESTINAL: Negative nausea, vomiting, abdominal pain : Positive dysuria, frequency, hematuria MUSCULOSKELETAL: negative muscle or bony pain SKIN: negative rash, skin lesions NEUROLOGIC: negative weakness, numbness ROS Unobtainable: All systems reviewed & are unremarkable except as noted in HPI and below Patient History Medical History Abdominal wall pain in left upper quadrant Asthma Asthma Scar of abdominal wall Seasonal allergies Surgical History Hx of appendectomy Hx of section Hx of tubal ligation alcohol intake frequency: holidays/special occasions only Substance Use Type: does not use Exam Narrative Exam Narrative: GENERAL: in no distress, not toxic not dyspneic HEAD: Normocephalic. EYES: Pupils equal round NECK: Trachea midline. CARDIOVASCULAR: Regular rate and rhythm RESPIRATORY: Clear to auscultation. Breath sounds equal bilaterally. No wheezes, rales, or rhonchi. GASTROINTESTINAL: Abdomen soft, non-tender no suprapubic tenderness. No peritoneal signs. Bowel sounds are present. EXTREMITIES: No gross deformities. BACK: No flank tenderness. NEURO: AOx4. SKIN: Warm and dry PSYCH: Not anxious, is cooperative Initial Vital Signs Initial Vital Signs: Vital Signs Temperature 97.8 F 06/29/23 09:49 Pulse Rate 76 06/29/23 09:49 Respiratory Rate 18 06/29/23 09:49 Blood Pressure 155/91 H 06/29/23 09:49 Pulse Oximetry 99 06/29/23 09:49 Oxygen Delivery Method Room Air 06/29/23 09:49 Course Orders Ordered: Discontinued Medications Nitrofurantoin Macrocrystals (Nitrofurantoin Er 100 Mg Capsule) 100 mg PO NOW ONE Stop: 06/29/23 10:40 Last Admin: 06/29/23 10:50 Dose: 100 mg Documented By: JACOBY Phenazopyridine HCl (Phenazopyridine 100 Mg Tablet) 200 mg PO NOW ONE Stop: 06/29/23 10:40 Last Admin: 06/29/23 10:50 Dose: 200 mg Documented By: JACOBY Vital Signs Vital signs: Vital Signs - 8 hr 06/29/23 09:49 Temperature 97.8 F Pulse Rate 76 Respiratory Rate 18 Blood Pressure 155/91 H Pulse Oximetry 99 Oxygen Delivery Method Room Air MDM - Female Genitourinary Lab Data Labs: Lab Results 06/29/23 Range/Units 09:44 Urine Color [place] Urine Appearance Clear Urine pH 5.5 (4.5-8.0) Ur Specific [place] <=1.005 (1.000-1.035) Urine Protein 1+ H (Negative) Urine Glucose (UA) Trace H (Negative) g/dL Urine Ketones Negative (NEGATIVE) Urine Occult Blood 1+ H (Negative) Urine Nitrate Positive H (Negative) Urine Bilirubin Negative (NEGATIVE) Urine Urobilinogen 4.0 H (0.2) E.U./dL Ur Leukocyte Esterase 2+ H (NEGATIVE) Urine RBC 1-5/hpf (0-5/HPF) Urine WBC 10-30/hpf H (0-5/HPF) Ur Squamous Epith Cells 1-5 /hpf (0-5/HPF) Urine Bacteria Moderate (10-30) H (None) Ur Culture Indicated? Specimen cultured Urine Test Negative (Negative) MDM Narrative Medical decision making narrative: Patient has history of UTIs. She states feels like having another UTI again for the past 2 days. Urinary frequency urgency with dysuria. No fever or chills. No back pain. No vomiting. Patient in no distress at this time. After history and exam urinalysis test MDM CC: Dysuria Complicating co-morbidities: History of UTI Data collected from: Patient Differential considered: Includes but not limited to UTI cystitis pyelonephritis Exam documented above, pertinent findings include: Nontender abdomen Lab Test results independently reviewed as above. Pertinent findings: Urinalysis positive for leukocytes bacteria nitrites Treatments: Macrobid Pyridium Re-evaluations: Reviewed results with patient. Agrees for treatment plan antibiotics and Pyridium. She does have a family doctor to follow up with. Return precautions reviewed with her. Not toxic at discharge. Return precautions reviewed she desires discharge home Discussion: Appropriate for discharge home, exam and laboratory studies otherwise reassuring as well as vital signs. Nontoxic at discharge. Return precautions reviewed with her. She desires discharge home. Antibiotics have been started here. Prescription printed out as it is a holiday weekend and uncertain about business hours for pharmacies. She does have a family doctor to follow up with. She desires discharge home. Nontoxic. Diagnosis: Acute UTI Discharge Plan Departure Patient Disposition: Home Clinical Impression: Acute UTI Instructions: DI for Urinary Tract Infection (UTI) Activity Restrictions/Additional Instructions: Your laboratory studies does show infection of the urine. Antibiotics have been started. Prescription provided as well. Please see family doctor this week for re-evaluation. Keep well hydrated. Return if worse if any questions or concerns. Prescriptions: No Action albuterol sulfate [ProAir HFA] 90 mcg/actuation HFA aerosol inhaler 2 puff inhalation Q4-6H PRN (Reason: wheezing) Qty: 8.5 3RF fluticasone propionate [Flovent HFA] 220 mcg/actuation HFA aerosol inhaler 2 puff inhalation BID PRN (Reason: nasal congestion) Qty: 12 3RF montelukast 10 mg tablet 10 mg PO DAILY Qty: 30 3RF cephalexin 500 mg capsule 500 mg PO Q8H Qty: 15 0RF Referrals: Kelli Lowe DO [Primary Care Provider] - Stand Alone Forms: Patient Portal/API
[2023-06-29] MEDS: PHENAZOPYRIDINE 100 MG TABLET 200 MG PO (10:50)
[2023-06-29] MEDS: NITROFURANTOIN ER 100 MG CAPSULE PO (10:50)
[2023-06-29 10:57] VITALS: BP 123/75; PULSE 65; RESP 14; O2SAT 99
== END 2023-06-29 10:59 | disposition home or self-care (01) ==
PROVIDERS: Emergency Provider Emergency Medicine; PCP Family Medicine
DX: N39.0 Urinary tract infection, site not specified (principal)
CPT/HCPCS: 81001; 81025; 87077; 87086; 87186; 99283

== ENCOUNTER → 2023-07-04 12:28 | Outpatient (CLI) | payer OTHER, SELFPAY ==
[2022-11-18 15:11] VITALS: BMI 27.1
[2023-07-04 15:01] LABS: Urine N gonorrhoeae NOT DETECTED
[2023-07-04 15:08] LABS: Urine Chlamydia NOT DETECTED
== END ==
PROVIDERS: PCP Family Medicine; Referring Provider Physician Assistant; Visit Provider Physician Assistant
DX: Z11.3 Encounter for screening for infections with a predominantly sexual mode of transmission (principal)
CPT/HCPCS: 87491; 87591

== ENCOUNTER → 2023-09-03 16:09 | Outpatient (CLI) | payer OTHER, SELFPAY ==
[2022-11-18 15:11] VITALS: BMI 27.1
== END ==
PROVIDERS: PCP Family Medicine; Visit Provider Physician Assistant
DX: R30.0 Dysuria (principal); D64.9 Anemia, unspecified
CPT/HCPCS: 87086

== ENCOUNTER → 2023-09-22 10:27 | Outpatient (CLI) | payer OTHER, SELFPAY ==
[2022-11-18 15:11] VITALS: BMI 27.1
[2023-09-22 11:15] LABS: Add Manual Diff / Slide Review NO; Basophils Absolute Auto 100 /uL (0-100); Basophils Percent Auto 1.3 % (0-2); Eosinophils Absolute Auto 0 /uL (0-450); Eosinophils Percent Auto 0.6 % (2-4); Hematocrit 39.7 % (36-46); Hemoglobin 13.2 g/dL (12.0-16.0); Lymphocytes Absolute Auto 1800 /uL (1100-4500); Lymphocytes Percent Auto 23.5 % (25-40); Mean Corpuscular HGB Conc 33.4 % (30-36); Mean Corpuscular Hemoglobin 30.5 PG (26-34); Mean Corpuscular Volume 91.4 fL (80-100); Monocytes Absolute Auto 500 /uL (0-900); Monocytes Percent Auto 6.5 % (3-14); Neutrophils Absolute Auto 5100 /uL (1500-7000); Neutrophils Percent Auto 68.1 % (50-75); Platelet Count 292 X10^3/uL (150-400); Red Blood Cell Count 4.34 X10^6/uL (4.0-5.2); Red Cell Distribution Width 14.5 % (11.6-14.8); White Blood Cell Count 7.5 X10^3/uL (4.5-11.0)
[2023-09-22 11:48] LABS: Alanine Aminotransferase 24 IU/L (<35); Albumin 4.1 g/dL (3.5-5.0); Albumin Globulin Ratio 1.6 (1.0-2.8); Alkaline Phosphatase 44 U/L (38-126); Aspartate Aminotransferase 32 IU/L (14-36); BUN Creatinine Ratio 21.5 (6-22); Bilirubin Total 0.5 mg/dL (0.2-1.3); Blood Urea Nitrogen 14 mg/dL (7-17); Calcium 9.8 mg/dL (8.4-10.2); Carbon Dioxide 28 mmol/L (22-32); Chloride 104 mmol/L (98-107); Estimated Glomerular Filt Rate > 60 mL/min (>60); Globulin 2.5 g/dL (1.7-4.1); Glucose 85 mg/dL (70-100); HEMOLYSIS < 15 (0-50); Potassium 4.4 mmol/L (3.4-5.1); Sodium 138 mmol/L (137-145); Total Protein 6.6 g/dL (6.3-8.2)
[2023-09-22 12:00] LABS: Vitamin D 25 Hydroxy (D3) 34.4 ng/mL (30.0-100.0)
== END ==
PROVIDERS: Physician Assistant; PCP Family Medicine; Referring Provider Family Medicine; Visit Provider Family Medicine
DX: D64.9 Anemia, unspecified (principal); J30.2 Other seasonal allergic rhinitis; J45.909 Unspecified asthma, uncomplicated; E55.9 Vitamin D deficiency, unspecified
CPT/HCPCS: 36415; 80053; 82306; 85025

== ENCOUNTER → 2023-09-24 12:15 | Outpatient (CLI) | payer OTHER, SELFPAY ==
[2022-11-18 15:11] VITALS: BMI 27.1
[2023-09-24 12:49] LABS: Appearance Urine UA CLEAR; Bilirubin Urine UA NEGATIVE (NEGATIVE); Color Urine UA YELLOW; Glucose Urine UA NEGATIVE (Negative); Ketones Urine UA TRACE (NEGATIVE); Leukocyte Esterase Urine UA NEGATIVE (NEGATIVE); Nitrite Urine UA NEGATIVE (Negative); Occult Blood Urine UA NEGATIVE (Negative); Protein Urine UA NEGATIVE (Negative); Urobilinogen Urine UA 0.2 E.U./dL (0.2)
[2023-09-24 12:55] LABS: pH Urine UA 5.5 (4.5-8.0)
[2023-09-24 13:18] LABS: Bacteria Urine Occasional (0-1); Culture Indicated Urine Cult Not Indicated; RBC Urine 0-1/HPF (0-5/HPF); Squamous Epithelial Cell Urine 5-10 /HPF (0-5/HPF); Urine Volume 10mL (spun); WBC Urine 0-1/HPF (0-5/HPF)
== END ==
LOC: LAB 12:16
PROVIDERS: PCP Family Medicine; Referring Provider Obstetrics & Gynecology; Visit Provider Obstetrics & Gynecology
DX: R30.0 Dysuria (principal)
CPT/HCPCS: 81001

== ENCOUNTER → 2023-10-07 15:30 | Outpatient (CLI) | payer OTHER, SELFPAY ==
[2022-11-18 15:11] VITALS: BMI 27.1
[2023-10-07 22:25] LABS: Urine N gonorrhoeae NOT DETECTED
[2023-10-07 22:39] LABS: Urine Chlamydia NOT DETECTED
== END ==
PROVIDERS: PCP Family Medicine; Visit Provider Obstetrics & Gynecology
DX: R30.0 Dysuria (principal); Z11.3 Encounter for screening for infections with a predominantly sexual mode of transmission
CPT/HCPCS: 87491; 87591

== ENCOUNTER → 2023-11-27 11:37 | Outpatient (CLI) | payer OTHER, SELFPAY ==
[2022-11-18 15:11] VITALS: BMI 27.1
== END ==
PROVIDERS: PCP Family Medicine; Referring Provider Obstetrics & Gynecology; Visit Provider Obstetrics & Gynecology
DX: N30.90 Cystitis, unspecified without hematuria (principal)
CPT/HCPCS: 87086

== ENCOUNTER → 2024-05-04 16:54 | Outpatient (CLI) | payer OTHER, SELFPAY ==
[2022-11-18 15:11] VITALS: BMI 27.1
--- NOTE | 2024-05-04 16:55 | DI.MG.S_ITS ---
BILATERAL DIGITAL SCREENING MAMMOGRAM 3D/2D WITH CAD: 05/04/2024 CLINICAL: Baseline exam. Routine screening. family history of breast cancer. No prior exams were available for comparison. The breasts are heterogeneously dense, which may obscure small masses (category c / 51-75% glandular tissue). Current study was also evaluated with a Computer Aided Detection (CAD) system. No significant masses, calcifications, or other findings are seen in either breast. IMPRESSION: NEGATIVE There is no mammographic evidence of malignancy. A 1 year screening mammogram is recommended. Based on the Tyrer Cuzick model (a risk assessment model) the patient's lifetime risk is 10.9% and her 10 year risk is 1.4%. According to the ACR, ACS, and NCCN guidelines, an annual breast MRI exam along with mammogram is recommended if the patient's lifetime risk is 20% or greater. This exam was interpreted at Station ID: [id number]. NOTE: For mammograms, a report in lay terms will be sent to the patient. Approximately 15% of breast malignancies will not be visualized mammographically. In the management of a palpable breast mass, a negative mammogram must not discourage biopsy of a clinically suspicious lesion. Electronically Signed By: Nikia Mills M.D., Ph.D. genet/daxa:05/05/2024 14:12:28 letter sent: Normal Exam ACR BI-RADS Category 1: Negative
== END ==
PROVIDERS: PCP Family Medicine; Referring Provider Family Medicine; Visit Provider Family Medicine
DX: Z12.31 Encounter for screening mammogram for malignant neoplasm of breast (principal); Z80.3 Family history of malignant neoplasm of breast; R92.333 Mammographic heterogeneous density, bilateral breasts
CPT/HCPCS: 77063; 77067

== ENCOUNTER → 2024-05-05 08:16 | Outpatient (CLI) | payer OTHER, SELFPAY ==
[2022-11-18 15:11] VITALS: BMI 27.1
[2024-05-05 09:09] LABS: Add Manual Diff / Slide Review NO; Basophils Absolute Auto 100 /uL (0-100); Basophils Percent Auto 2.3 % (0-2); Eosinophils Absolute Auto 100 /uL (0-450); Eosinophils Percent Auto 1.5 % (2-4); Hemoglobin 13.9 g/dL (12.0-16.0); Lymphocytes Absolute Auto 2400 /uL (1100-4500); Lymphocytes Percent Auto 41.3 % (25-40); Mean Corpuscular HGB Conc 33.9 % (30-36); Mean Corpuscular Volume 94.4 fL (80-100); Monocytes Absolute Auto 300 /uL (0-900); Monocytes Percent Auto 5.7 % (3-14); Neutrophils Absolute Auto 2900 /uL (1500-7000); Neutrophils Percent Auto 49.2 % (50-75); Platelet Count 279 X10^3/uL (150-400); Red Blood Cell Count 4.35 X10^6/uL (4.0-5.2); Red Cell Distribution Width 13.3 % (11.6-14.8); White Blood Cell Count 5.8 X10^3/uL (4.5-11.0)
[2024-05-05 09:26] LABS: Cholesterol 201 mg/dL (140-199); HDL Cholesterol 92 mg/dL (40-60); LDL Cholesterol Calculated 99 mg/dL (<100); Triglycerides 50 mg/dL (35-150)
[2024-05-05 09:30] LABS: High Sensitivity CRP - Cardiac < 0.3 mg/L (1.0-3.0)
[2024-05-05 09:42] LABS: Follicle Stimulating Hormone 20.2 mIU/mL
[2024-05-05 09:56] LABS: TSH w/ Reflex to FT4 1.16 uIU/mL (0.47-4.68)
[2024-05-05 10:01] LABS: Ferritin 25 ng/mL (6-137)
[2024-05-07 07:11] LABS: Dehydroepiandrosterone Sulfate 39.5 ug/dL (57.3-279.2)
[2024-05-12 00:22] LABS: Estradiol, Sensitive 25.7 pg/mL (.)
== END ==
PROVIDERS: PCP Family Medicine; Referring Provider Family Medicine; Visit Provider Family Medicine
DX: N95.1 Menopausal and female climacteric states (principal); D64.9 Anemia, unspecified; R41.89 Other symptoms and signs involving cognitive functions and awareness; Z83.438 Family history of other disorder of lipoprotein metabolism and other lipidemia; L65.9 Nonscarring hair loss, unspecified
CPT/HCPCS: 36415; 80061; 82627; 82670; 82728; 83001; 83525; 84443; 85025; 86140

== ENCOUNTER → 2024-07-28 16:48 | Outpatient (CLI) | payer OTHER, SELFPAY ==
[2022-11-18 15:11] VITALS: BMI 27.1
--- NOTE | 2024-07-28 16:49 | DI.RAD.S_ITS ---
PROCEDURE: XR HIP W PEL IF DONE RT 2V INDICATIONS: chronic pain @ hip anterior>posterior TECHNIQUE: AP pelvis with lateral view(s) of the right hip(s). COMPARISON: None. FINDINGS: Bones: No fractures or dislocations. Pelvic ring appears intact. No suspicious bony lesions. Soft tissues: The visualized bowel gas pattern is normal. No suspicious soft tissue calcifications. IMPRESSION: No acute osseous abnormality. If pain persists with conservative management, consider repeat x-ray in 10-14 days or cross-sectional imaging. Dictated by: Mathieu Kohli M.D. on 07/29/2024 at 16:03 Approved by: Mathieu Kohli M.D. on 07/29/2024 at 16:03
== END ==
PROVIDERS: PCP Family Medicine; Referring Provider Physician Assistant; Visit Provider Physician Assistant
DX: M25.551 Pain in right hip (principal)
CPT/HCPCS: 73502

== ENCOUNTER → 2024-09-16 16:35 | Outpatient (CLI) | payer OTHER, SELFPAY ==
[2022-11-18 15:11] VITALS: BMI 27.1
--- NOTE | 2024-09-16 16:49 | DI.MRI.S_ITS ---
PROCEDURE: MR HIP RT WO CON INDICATIONS: ILLIOPSAOS TENDONITIS TECHNIQUE: Noncontrast coronal T1 spin echo and STIR through the bony pelvis. Coronal and axial T2 fast spin echo with fat saturation, sagittal T1 spin echo, and oblique axial T2 fast spin echo with fat saturation through the hip. COMPARISON: [facility], CR, XR HIP W PEL IF DONE RT 2V, 07/28/2024, 16:46. FINDINGS: Image quality: Excellent. Bones and joints: Marrow signal of the visualized lower lumbar spine is unremarkable. The sacrum is intact. The right sacroiliac joint is unremarkable. Mild degenerative changes of the left sacroiliac joint, with mild subchondral marrow edema in the left posterior iliac wing. Joint space of bilateral hips are well maintained. No acute fracture or dislocation of either hip. No avascular necrosis of either femoral head. Tendons and ligaments: The right iliopsoas, adductor, and hamstring tendons are unremarkable. The right gluteal minimus is unremarkable. Mild peritendinitis of the right gluteal medius, without tear. Trace right greater trochanteric bursitis. Labrum and cartilage: Circumferential labral tear, no paralabral cyst. Soft tissues: Bilateral ovarian cysts, measuring up to 3.8 cm on the right. Sigmoid colon diverticulosis. IMPRESSION: 1. Unremarkable right iliopsoas tendon. 2. Mild peritendinitis of the right gluteal medius, without tear. 3. Circumferential labral tear of the right hip. No paralabral cyst. 4. Bilateral ovarian cysts, measuring up to 3.8 cm. Recommend further evaluation with pelvic ultrasound. Dictated by: Mila Murray M.D. on 09/17/2024 at 11:26 Approved by: Mila Murray M.D. on 09/17/2024 at 11:33
== END ==
PROVIDERS: PCP Family Medicine; Referring Provider Family Medicine; Visit Provider Orthopaedic Surgery
DX: M70.71 Other bursitis of hip, right hip (principal); M76.01 Gluteal tendinitis, right hip; S73.191A Other sprain of right hip, initial encounter; N83.202 Unspecified ovarian cyst, left side; N83.201 Unspecified ovarian cyst, right side; K57.30 Diverticulosis of large intestine without perforation or abscess without bleeding
CPT/HCPCS: 73721

== ENCOUNTER → 2024-10-07 14:33 | Outpatient (CLI) | payer OTHER, SELFPAY ==
[2022-11-18 15:11] VITALS: BMI 27.1
--- NOTE | 2024-10-07 14:34 | DI.US.S_ITS ---
PROCEDURE: US PELVIC COMPLETE INDICATIONS: Ovarian cyst TECHNIQUE: Real-time scanning was performed of the pelvic organs, with image documentation. Additional endovaginal scanning was necessary due to incomplete visualization of the adnexal and endometrial structures by transabdominal scanning. COMPARISON: [facility], , US PELVIC COMPLETE, 05/28/2022, 15:35. FINDINGS: Uterus: Surgically absent. Ovaries: The right ovary is not seen. The left ovary measures 2.0 x 2.6 x 2.2 cm, with a calculated ovarian volume of 6.0 cc. Simple left ovarian cyst measuring 1.9 cm. Less than 12 follicles within the left ovary. Other: No pathologic free abdominal or pelvic fluid. IMPRESSION: Simple left ovarian cyst measuring 1.9 cm. The right ovary is not seen. Status post hysterectomy. We strive to produce accurate, complete, and clear reports of imaging services. To assist us in improving patient care, this report was composed using standard report templates and voice recognition software. Therefore, it may contain abnormal punctuation, insertions and/or omissions. Occasional wrong-word or sound-alike substitutions may occur. Though we review the report and make efforts to correct it, we do recommend that the report be read carefully in proper context to recognize any text inaccuracies. Dictated by: Mathieu Kohli M.D. on 10/07/2024 at 16:28 Approved by: Mathieu Kohli M.D. on 10/07/2024 at 16:32
== END ==
PROVIDERS: PCP Family Medicine; Referring Provider Obstetrics & Gynecology; Visit Provider Obstetrics & Gynecology
DX: N83.292 Other ovarian cyst, left side (principal); Z90.710 Acquired absence of both cervix and uterus
CPT/HCPCS: 76830; 76856; 93976

== ENCOUNTER 2024-10-15 15:57 | Emergency (ER) | payer OTHER, SELFPAY ==
[2022-11-18 15:11] VITALS: BMI 27.1
[2024-10-15 16:47] VITALS: BP 116/77; PULSE 62; RESP 14; TEMP 36.8; O2SAT 98; BMI 26.6
--- NOTE | 2024-10-15 16:54 | DI.CT.S_ITS ---
PROCEDURE: CT HEAD/BRAIN WO CON INDICATIONS: struck with tree branch Friday TECHNIQUE: Noncontrast 4.5 mm thick angled axial sections acquired from the foramen magnum to the vertex, with coronal and sagittal reformats. For radiation dose reduction, the following was used: automated exposure control, adjustment of mA and/or kV according to patient size. COMPARISON: [facility], CT, CT FACIAL BONES WO CON, 10/15/2024, 17:30. [facility], CT, CT CERVICAL SPINE WO CON, 10/15/2024, 17:30. FINDINGS: Image quality: Diagnostic. CSF spaces: Basal cisterns are patent. No extra-axial fluid collections. Ventricles are normal in size and shape. Brain: No midline shift. No intracranial mass effect or hemorrhage. [place]-white matter interface is normal. Skull and face: Calvarium and visualized facial bones are intact, without suspicious lesions. Sinuses: Visualized sinuses and mastoids are clear. IMPRESSION: No acute intracranial hemorrhage is seen. No acute intracranial pathology. Dictated by: Jet Clarke M.D. on 10/15/2024 at 17:05 Approved by: Jet Clarke M.D. on 10/15/2024 at 17:05
--- NOTE | 2024-10-15 16:55 | DI.CT.S_ITS ---
PROCEDURE: CT CERVICAL SPINE WO CON INDICATIONS: Struck with tree branch on Friday TECHNIQUE: Noncontrast 3 mm thick sections acquired from the skull base to the T4 level. Sagittal and coronal reformats were then constructed. For radiation dose reduction, the following was used: automated exposure control, adjustment of mA and/or kV according to patient size. COMPARISON: [facility], CT, CT HEAD/BRAIN WO CON, 10/15/2024, 17:30. [facility], CT, CT FACIAL BONES WO CON, 10/15/2024, 17:30. FINDINGS: Image quality: This examination is somewhat limited by quantum mottle artifact. Bones: No fractures or dislocations. Visualized superior ribs are intact. Soft tissues: Prevertebral soft tissues are normal in thickness. No paravertebral hematomas. No apical pneumothoraces. IMPRESSION: No displaced fracture or traumatic subluxation. Dictated by: Jet Clarke M.D. on 10/15/2024 at 17:06 Approved by: Jet Clarke M.D. on 10/15/2024 at 17:07
--- NOTE | 2024-10-15 16:56 | DI.CT.S_ITS ---
PROCEDURE: CT FACIAL BONES WO CON INDICATIONS: Struck with tree branch Friday TECHNIQUE: Noncontrast 2.5 mm thick axial images acquired from the mandible through the frontal sinuses, with coronal and sagittal reformatting. For radiation dose reduction, the following was used: automated exposure control, adjustment of mA and/or kV according to patient size. COMPARISON: [facility], CT, CT CERVICAL SPINE WO CON, 10/15/2024, 17:30. [facility], CT, CT HEAD/BRAIN WO CON, 10/15/2024, 17:30. FINDINGS: Image quality: Excellent. Bones and teeth: Orbital wylie are intact. Sinus wylie show no fracture or deformity. Nasal bones and septum are intact. Visualized portions of the mandible demonstrate no fractures or subluxation. Zygomatic arches are intact. Pterygoid plates are intact. Visualized portions of the skull base and auditory canals are intact. Sinuses: There is a mucous retention cyst seen within the right maxillary sinus. The other paranasal sinuses are relatively clear. Soft tissues: No edema, masses, or fluid collections. No enlarged lymph nodes. No soft tissue lacerations or debris. Vascular: Visualized vascular structures appear normal in the absence of contrast. Bony vascular foramina and canals are intact. IMPRESSION: No displaced facial bone fracture is seen. Dictated by: Jet Clarke M.D. on 10/15/2024 at 17:03 Approved by: Jet Clarke M.D. on 10/15/2024 at 17:04
--- NOTE | 2024-10-15 16:57 | PC.NURSE ---
This RN gave verbal report to Dr. Hook and got verbal orders for Head, c-spine, and facial bones CT without contrast.
--- NOTE | 2024-10-15 19:30 | ED_ITS ---
HPI - General Adult General Chief complaint: Trauma Stated complaint: poss concussion Time Seen by Provider: 10/15/24 18:16 Source: patient Mode of arrival: Ambulatory History of Present Illness HPI narrative: 39-year-old woman with a history of mild intermittent asthma was doing some gardening in her yd, cutting off a large tree limb and it ended up falling and hitting her of the right side of her forehead. Original injury was 5 days ago. Her next-door neighbor, who happens to be a physician, did come over and check her out at the time. She was instructed to come to the ER if symptoms did not improve. She is describing fairly significant postconcussion symptoms including nausea no vomiting, difficulty focusing, hypersensitivity to light sounds and emotions. She has some acute neck strain but no midline cervical spine tende rness. Ecchymosis around the right eye with almost complete resolution of the large hematoma she describes over her forehead itself. No other injuries Related Data Home Medications Medication Instructions Recorded Confirmed DIM PO 04/12/24 07/28/24 soy isolate PO 04/12/24 07/28/24 Previous Rx's Medication Instructions Recorded albuterol sulfate 90 mcg/actuation 2 puff inhalation Q4-6H PRN 09/22/23 aerosol inhaler (ProAir HFA) wheezing #8.5 grams hydrocortisone acetate 25 mg 25 mg OK BID #12 ea 09/22/23 rectal suppository montelukast 10 mg tablet 10 mg PO DAILY allergies #90 tabs 09/22/23 estradiol 0.025 mg/24 hr 1 patch transdermal 2XW #24 ea 05/14/24 semiweekly transdermal patch ferrous sulfate 325 mg (65 mg 325 mg PO Q OTHER DAY #90 tabs 05/14/24 iron) tablet (Feosol) progesterone micronized 100 mg 100 - 200 mg (1 - 2 x 100 mg) PO 05/14/24 capsule (Prometrium) BEDTIME #180 caps Allergies Allergy/AdvReac Type Severity Reaction Status Date / Time codeine Allergy Unknown Verified 10/07/24 14:15 estradiol AdvReac Severe ITCHING Uncoded 10/07/24 14:15 Review of Systems Review of Systems Narrative: Pertinent positive and negative findings as per HPI Patient History Medical History Asthma Scar of abdominal wall Abdominal wall pain in left upper quadrant Seasonal allergies Asthma Surgical History Hx of tubal ligation Hx of section Hx of appendectomy Social History marital status: household members: children occupational status: employed alcohol intake: current substance use type: does not use Smoking Status: Never smoker alcohol intake frequency: holidays/special occasions only Exam Initial Vital Signs Initial Vital Signs: Vital Signs Temperature 98.2 F 10/15/24 16:47 Pulse Rate 62 10/15/24 16:47 Respiratory Rate 14 10/15/24 16:47 Blood Pressure 116/77 10/15/24 16:47 Pulse Oximetry 98 10/15/24 16:47 Oxygen Delivery Method Room Air 10/15/24 16:47 General: Alert appropriate in no acute distress HEENT: Minimal bruising over the right forehead, ecchymosis around the right eye and over the right upper cheek. Lesser ecchymosis over the left. No tenderness over the cheek bones or with biting or dentition. No vision changes, no subconjunctival hematomas, extraocular eye movement is unrestricted Neck: Tenderness bilaterally in the trapezius muscles up into the posterior cervical muscles with no tenderness midline C-spine Neurologic: Grossly intact no obvious asymmetries or abnormalities Psych: appropriate insight and affect, cooperative Course Orders Ordered: ED Orders 10/15/24 16:54 CT head/brain wo con Stat 10/15/24 16:55 CT cervical spine wo con Stat 10/15/24 16:56 CT facial bones wo con Stat Vital Signs Vital signs: Vital Signs - 8 hr 10/15/24 16:47 Temperature 98.2 F Pulse Rate 62 Respiratory Rate 14 Blood Pressure 116/77 Pulse Oximetry 98 Oxygen Delivery Method Room Air Medical Decision Making MDM Narrative Medical decision making narrative: Otherwise healthy 39-year-old woman hit with a large tree branch while she was cutting it down with initial hematoma over the right forehead now with ecchymosis coming down over both eyes. Possibility of intracranial hemorrhage, skull fracture, orbital fractures are entertained. Complains of postconcussion type symptoms. She has not had any syncope. Her nausea is resolving. CT scans of the head, cervical spine and face show no intracranial hemorrhage fractures or other injuries. Findings reviewed with the patient. Discussed postconcussion syndrome, findings, probable course of resolution. With her nausea essentially resolved she declined any Zofran or prescription for same. She will be given additional reading material. Currently there is no indication for further imaging, blood work or hospitalization and she is safe for discharge Discharge Plan Departure Patient Disposition: Home Clinical Impression: Post-concussion syndrome Concussion Qualifiers: Encounter type: initial encounter Loss of consciousness presence/duration: without LOC Qualified Code(s): S06.0X0A - Concussion without loss of consciousness, initial encounter Traumatic hematoma of face Qualifiers: Encounter type: initial encounter Qualified Code(s): S00.83XA - Contusion of other part of head, initial encounter Acute cervical myofascial strain Qualifiers: Encounter type: initial encounter Qualified Code(s): S16.1XXA - Strain of muscle, fascia and tendon at neck level, initial encounter Instructions: DI for Postconcussion Syndrome Activity Restrictions/Additional Instructions: Thank you for coming in today Your head CT, cervical spine CT and facial bone CTs are all reassuring. No broken bones and no bleeding inside your head You do have an acute neck strain, using 400 mg of ibuprofen (2 [id number] pills) and 1 Tylenol every 6 hours can be very helpful in controlling pain. This will continue to improve You are also experiencing postconcussion syndrome. I have included some printed information on this. The fact that you are nausea is improving is a good sign that the remainder of your symptoms will be improving with time I wish you the best in finding all of the appropriate make up to cover up the eye bruises for a wedding pictures next week! If you find that you are getting worse or develop any new symptoms, please feel free to return to the emergency department for further evaluation. Prescriptions: No Action DIM PO soy isolate PO estradiol 0.025 mg/24 hr patch semiweekly 1 patch transdermal 2XW Qty: 24 3RF Rx Instructions: apply 1 patch for 3 days alternating with 1 patch for 4 days each week progesterone micronized [Prometrium] 100 mg capsule 100 - 200 mg PO BEDTIME Qty: 180 3RF ferrous sulfate [Feosol] 325 mg (65 mg iron) tablet 325 mg PO Q OTHER DAY Qty: 90 3RF Rx Instructions: Take with enough vitamin C to mitigate any constipation montelukast 10 mg tablet 10 mg PO DAILY Qty: 90 3RF albuterol sulfate [ProAir HFA] 90 mcg/actuation HFA aerosol inhaler 2 puff inhalation Q4-6H PRN (Reason: wheezing) Qty: 8.5 3RF hydrocortisone acetate 25 mg suppository 25 mg OK BID Qty: 12 1RF Referrals: Kelli Lowe DO [Primary Care Provider] - Stand Alone Forms: Patient Portal/API/Survey
[2024-10-15 19:49] VITALS: BP 112/62; PULSE 98; RESP 16; TEMP 36.9; O2SAT 98
== END 2024-10-15 19:51 | disposition home or self-care (01) ==
PROVIDERS: Emergency Provider Emergency Medicine; PCP Family Medicine
DX: S00.83XA Contusion of other part of head, initial encounter (principal); S16.1XXA Strain of muscle, fascia and tendon at neck level, initial encounter; F07.81 Postconcussional syndrome; W20.8XXA Other cause of strike by thrown, projected or falling object, initial encounter
CPT/HCPCS: 70450; 70486; 72125; 99283; 99284